=== PATIENT | female | born 1945 | race Caucasian/White ===

== ENCOUNTER 2020-04-12 18:12 | Emergency (ER) | payer MEDICARE, SELFPAY ==
[2020-04-12 18:24] VITALS: BP 140/70; PULSE 76; RESP 16; TEMP 36.6; O2SAT 97
--- NOTE | 2020-04-12 18:53 | ED.GENADUL_ITS ---
Discharge Plan Disposition Patient Disposition: HOME Condition: Good Discharge Details Clinical Impression: Hallucination Primary Care Provider: None,None ED Provider: Manjula Franklin Home Meds and New Rx's Prescriptions: New risperidone 0.25 mg tablet 0.25 mg PO QHS Qty: 7 RF: 0 risperidone 0.25 mg tablet 0.25 mg PO QHS Qty: 7 RF: 0 Discharge Instructions Additional Instructions: Take Risperdal as needed nightly Follow-up with your psychiatrist on Tuesday Please return with new or worsening complaints including thoughts of wanting to harm self Medical Decision Making Patient is alert, oriented, of decisional capacity, she is quite anxious in presentation After long discussion the patient and her son, I believe patient symptoms are related to her underlying anxiety and insomnia Son is going to stay with patient until she has follow-up appointment with psychiatry and he feels comfortable with this discharge plan at this time While patient is tangential, she is lucid and able to participate in medical decision She will be discharged home in the care of her son who is alert and oriented and able to care for her based on my clinical exam today in the emergency room Her CT brain does not show acute pathology Her diagnostic labs are reassuring Her urinalysis appears to be contaminated as she has significant amount of epithelials without leukocyte esterase or nitrates visualized There is no indication for urine culture at this time Patient does not appear to be under the influence of any mood altering substances She denies suicidal or homicidal ideation I did give her a very small dose of Risperdal to help her sleep, 0.25 mg tabs like she is taken in the past and done quite well She does have outpatient psychiatry which is reassuring Today's examination and disposition may have been altered secondary to the current Covid pandemic Differential Diagnosis Differential Diagnosis: Encephalopathy, urinary tract infection, thyroid abnormality, electrolyte a Medical Records Medical records reviewed: Yes I reviewed the patient's medical records. HPI This 74-year-old female presents with her son for anxiety and intermittent hallucinations. Apparently she has had a similar episode before after her several years ago. Patient denies known urinary symptoms. He denies any potential for overdose. Patient denies suicidal or homicidal ideation. She is not currently hallucinating per patient. She does live alone but son currently staying with patient. She was reportedly on Risperdal when this event happened previously. His preference is to take his mom home but he would like her evaluated medically reportedly. General Date/Time Provider Initiated Documentation: 04/12/20 18:26 . Related Data Home Medications Medication Instructions Recorded Confirmed risperidone 0.25 mg PO QHS #7 tab 04/12/20 risperidone 0.25 mg PO QHS #7 tab 04/12/20 Previous Rx's Medication Instructions Recorded risperidone 0.25 mg PO QHS #7 tab 04/12/20 risperidone 0.25 mg PO QHS #7 tab 04/12/20 Allergies Allergy/AdvReac Type Severity Reaction Status Date / Time wool AdvReac Unverified 04/12/20 18:50 General Stated Complaint: PsychEval LUISA: 2 Review of Systems Narrative: Review of systems negative x7 aside from where indicated in HPI Unobtainable due to mental status PFSH Social History Smoking risk assessment performed?: No Do you feel safe at home: Yes Additional Social history: states she has her own place and sometimes lives with son or daughter. says she will be seeing her doctor, her passing was difficult for her. asked when her passed, she states she does not know Exam HENMT Head: normal to inspection Eyes General: appearance normal, both eyes and all related structures Pupils: PERRL EOM: EOM intact bilaterally Resp Effort & Inspection: normal respiratory effort Auscultation: clear to auscultation bilaterally Cardio Rate: regular rate Rhythm: regular rhythm Neuro General: patient alert and patient oriented x3 Cranial Nerves: CN's II-XI intact bilaterally Cognition: normal cognition Speech: speech normal Gait: normal gait Motor: strength 5/5 throughout Sensory Exam: no sensory deficits noted Extrem General: normal to inspection Psych Appearance: well kempt Speech and Movement: restless Mood: anxious mood Thought Process: tangential Course Vital Signs Vital signs: Vital Signs Temperature 36.6 C 04/12/20 18:24 Pulse 76 04/12/20 18:24 Respiratory Rate 16 04/12/20 18:24 Blood Pressure 140/70 04/12/20 18:24 Pulse Oximetry 97 04/12/20 18:24 Temperature 36.6 C 04/12/20 18:24 Temperature Source Temporal Artery Scan 04/12/20 18:24 Pulse 76 04/12/20 18:24 Respiratory Rate 16 04/12/20 18:24 Blood Pressure 140/70 04/12/20 18:24 Blood Pressure Position Sitting 04/12/20 18:24 Pulse Oximetry 97 04/12/20 18:24 Oxygen Delivery Method Room Air 04/12/20 18:24 Oxygen Flow Rate 0 04/12/20 18:24 Pain Level 0 04/12/20 18:24
[2020-04-12 18:57] LABS: Abs Immature Grans 0.01 10^3/uL (0.0-0.06); Absolute Basophil Count 0.09 10^3/uL (0.0-0.2); Absolute Eosinophil Count 0.22 10^3/uL (0.0-0.7); Absolute Lymphocyte Count 2.68 10^3/uL (1.2-3.4); Absolute Monocyte Count 0.83 10^3/uL (0.1-0.8); Absolute Neutrophil Count 5.98 10^3/uL (1.2-6.7); Basophils % 0.9; Eosinophils % 2.2; HCT 43.4 % (36.0-46.0); HGB 14.5 g/dL (11.2-15.7); Immature Grans % 0.1; Lymphocytes % 27.3; MCH 30.9 pg (27.0-33.0); MCHC 33.4 % (32.0-36.0); MCV 92.3 fL (80-95); MPV 10.2 fL (8.0-11.0); Monocytes % 8.5; Nucleated RBC 0 %; Platelet Count 267 10^3/uL (130-400); RDW 11.8 % (11.7-14.6); RDW-SD 39.9 fL; WBC 9.81 10^3/uL (4.4-10.8)
[2020-04-12 19:03] LABS: Bilirubin Negative (Negative); Blood Trace-intact (Negative); Clarity Clear (Clear); Glucose Negative (Negative); Ketones Negative (Negative); Leukocyte Esterase Trace (Negative); Nitrite Negative (Negative); Specific Gravity >= 1.030 (1.005-1.025); Urobilinogen 0.2 EU/dL (Up TO 0.2); pH 5.5 (5-8)
[2020-04-12 19:09] VITALS: BP 153/83; PULSE 93; RESP 16; O2SAT 95
[2020-04-12 19:32] LABS: Bacteria Few HPF (Negative); C & S Indicated? No/Sq. Contamination; Casts Negative LPF (Negative); Crystals Few Calcium Oxalate HPF (Negative); Epithelial Cells Moderate HPF (Negative); Mucus Negative (Negative); WBC 20-50 HPF (0-5)
[2020-04-12 19:39] LABS: ALT 17 U/L (14-59); AST 21 U/L (15-37); Albumin 3.9 g/dL (3.4-5.0); Alkaline Phosphatase 102 U/L (46-116); Anion Gap 11.1 mmol/L (3-11); BUN 21 mg/dL (7-18); Bilirubin, Total 0.5 mg/dL (0.2-1.0); CO2 25.9 mmol/L (21.0-32.0); CREATININE 0.8 mg/dL (0.55-1.02); Calcium 9.1 mg/dL (8.5-10.1); Chloride 106 mmol/L (98-107); Glucose 106 mg/dL (74-106); Potassium 3.7 mmol/L (3.5-5.1); Sodium 143 mmol/L (136-145); TSH 2.83 uIU/mL (0.36-3.74)
--- NOTE | 2020-04-12 19:42 | DI.CT_ITS ---
EXAM: CT HEAD WO CLINICAL HISTORY: confusion. TECHNIQUE: Imaging Protocol: Axial computed tomography images with coronal and sagittal reformatted images were created and reviewed COMPARISON: No exams were available for comparison FINDINGS: There are no skull fractures nor fluid in the visualized paranasal sinuses. There is no evidence of intracranial hemorrhage, mass effect, or shift of midline structures. There are no extra-axial fluid collections. The ventricles are not enlarged or shifted and there is no blo od within the ventricular system nor within the basal cisterns. There is abundant bilateral periventricular hypodensity consistent with chronic small vessel disease. IMPRESSION: There is abundant bilateral periventricular hypodensity consistent chronic small-vessel white matter ischemic disease. No evidence of intracranial hemorrhage, intra or extra-axial. If clinically indicated follow-up MRI with diffusion imaging could be performed. RADIATION DOSE DELIVERED: 715.28mGy.cm Total DLP DATA REPOSITORY: All CT scans at this facility are submitted to the National Radiology Data Registry (NRDR) Dose Index Registry (DIR) with the [employer] ([employer]). RADIATION OPTIMIZATION: All CT scans at this facility use at least one of these dose optimization te chniques: automated exposure control; mA and/or kV adjustment per patient size (includes targeted exa ms where dose is matched to clinical indication); or iterative reconstruction.
--- NOTE | 2020-04-12 19:58 | DI.VRAD_ITS ---
PROCEDURE INFORMATION: Exam: CT Head Without Contrast Exam date and time: 04/12/2020 7:25 PM Age: 74 years old Clinical indication: Pain; Headache not specified; Patient HX: Confusion TECHNIQUE: Imaging protocol: Computed tomography of the head without contrast. Radiation optimization: All CT scans at this facility use at least one of these dose optimization techniques: automated exposure control; mA and/or kV adjustment per patient size (includes targeted exams where dose is matched to clinical indication); or iterative reconstruction. COMPARISON: No relevant prior studies available. FINDINGS: Brain: Swanson-white matter differentiation is normal. There is no mass effect or midline shift. There is no intra-axial hemorrhage. There are mild patchy foci of periventricular and subcortical white matter hypodensities which might reflect chronic microvascular ischemic disease. There is parenchymal volume loss with compensatory dilatation of ventricles, sulci and basilar cisterns. There is no extra-axial fluid collection. Cerebral ventricles: No ventriculomegaly. Bones/joints: Unremarkable. No acute fracture. Paranasal sinuses: There is mild mucosal thickening in the left anterior ethmoidal air cells and left frontal sinus, frontoethmoidal recess. . Mastoid air cells: Visualized mastoid air cells are well aerated. Vasculature: There are calcifications of bilateral carotid siphons. Soft tissues: Unremarkable. IMPRESSION: No acute intracranial abnormality. Dictated and Authenticated by: Brayan Ludwig MD. Ordering:CK Fair MD
[2020-04-12 20:27] VITALS: BP 174/89; PULSE 94; RESP 15; O2SAT 98
--- NOTE | 2020-04-12 20:55 | NUR.NOTE ---
report to SUNITA Parker
[2020-04-12 20:56] VITALS: BP 152/85; PULSE 86; RESP 16; TEMP 36.7; O2SAT 97
[2020-04-12 21:04] LABS: *AMPHETAMINES SCREEN URINE Negative (Negative); *BARBITURATES SCREEN URINE Negative (Negative); *BENZODIAZEPINES SCREEN URINE Negative (Negative); Cannabinoids THC Negative (Negative); Cocaine Screen,Urine Negative (Negative); METHADONE URINE SCREEN Negative (Negative); OPIATES URINE SCREEN Negative (Negative)
[2020-04-12] MEDS: risperiDONE 0.5 MG TAB (21:04)
--- NOTE | 2020-04-12 21:23 | NUR.NOTE ---
pt ambulated to the BR with nurse and then out to her car where her son was waiting to take her home and also stay with her .Nursing Note:
[2020-04-12 21:25] LABS: Tricyclic Antidepressants Negative (Negative)
== END 2020-04-12 21:25 | disposition home or self-care (01) ==
LOC: ER 21:35
PROVIDERS: Emergency Provider Physician Assistant
DX: R44.0 Auditory hallucinations (principal); F41.9 Anxiety disorder, unspecified; G47.00 Insomnia, unspecified
CPT/HCPCS: 36415; 80053; 80307; 99284; 70450; 81003; 81015; 84443; 85025